=== PATIENT | female | born 1965 | race Caucasian/White ===

== ENCOUNTER → 2018-04-13 | Outpatient (CLI) | payer BC | LOC: COL.RAD 08:17 | DX: M87.051 Idiopathic aseptic necrosis of right femur (principal); M16.7 Other unilateral secondary osteoarthritis of hip; R60.0 Localized edema; S43.431A Superior glenoid labrum lesion of right shoulder, initial encounter | CPT/HCPCS: A9585; Q9967 ==

== ENCOUNTER → 2018-07-10 | Outpatient (CLI) | payer BC | LOC: COL.LAB 16:02 | DX: Z01.812 Encounter for preprocedural laboratory examination (principal) ==

== ENCOUNTER → 2018-07-17 | Outpatient (REF) ==
[2018-07-17 06:47] LABS: COLLECTION METHOD CATHETER
[2018-07-17 06:56] LABS: PH 5 (5-8); SQUAMOUS EPITHELIAL None Seen /hpf; URINE APPEARANCE Clear; URINE BACTERIA None Seen /hpf; URINE BILIRUBIN Negative (NEGATIVE); URINE BLOOD Negative (NEGATIVE); URINE COLOR Straw; URINE GLUCOSE Negative (NEGATIVE); URINE KETONE Negative (NEGATIVE); URINE LEUKOCYTE ESTERASE Negative (NEGATIVE); URINE NITRATE Negative (NEGATIVE); URINE PROTEIN(semi-quant) Negative (NEGATIVE); URINE RBC 0-2 /hpf; URINE UROBILINOGEN Negative (NEGATIVE); URINE WBC 0-2 /hpf
== END ==
LOC: ZMSC 06:45
PROVIDERS: Orthopaedic Surgery
DX: Z01.89 Encounter for other specified special examinations (principal)